=== PATIENT | female | born 1955 | race Caucasian/White ===

== ENCOUNTER 2017-02-04 08:16 | Outpatient (CLI) | payer MEDICARE, OTHER ==
--- NOTE | 2017-02-04 10:17 | ULT ---
GALLBLADDER ULTRASOUND: INDICATION: Right upper quadrant pain. FINDINGS: There is nonvisualization of the gallbladder. The common duct measures 4 mm, which is within normal limits of size. There is heterogeneity of the hepatic echotexture which may be on the basis of hep atic steatosis and/or hepatocellular disease. This does reduce acoustic penetration and limits asse ssment of the liver. No ascites visualized. IMPRESSION: 1. Nonvisualization of the gallbladder. Correlate clinically. 2. Increased echogenicity with decreased acoustic penetration of the liver, as above. Correlation with liver function enzymes may prove useful. 3. Incidental note of cysts of the right kidney, difficult to further characterize due to patient b cori habitus and decreased acoustic penetration of the retroperitoneum. POS: [facility]
== END 2017-02-04 08:17 | disposition home or self-care (01) ==
LOC: MADULT 08:16
PROVIDERS: ATTEND Family Medicine
DX: R10.10 Upper abdominal pain, unspecified (principal); N28.1 Cyst of kidney, acquired
CPT/HCPCS: 76705

== ENCOUNTER 2018-01-08 12:40 | Emergency (ER) | payer MEDICARE, MEDICAID ==
--- NOTE | 2018-01-08 13:31 | RAD ---
CHEST 1 VIEW: Date: 01/08/18 HISTORY: Altered mental status. COMPARISON: 02/22/15. FINDINGS: Cardiac silhouette is magnified by projection. Pulmonary vasculature is upper limits of normal. Media stinum is midline. No lobar consolidation or evidence of pneumothorax. 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 IMPRESSION: No active cardiopulmonary abnormalities are demonstrated. POS: [facility]
[2018-01-08 13:50] LABS: ALT (SGPT) 12 U/L (8-55); AST (SGOT) 18 U/L (5-34); Albumin 3.5 g/dL (3.5-5.0); Alkaline Phosphatase 82 U/L (40-150); Anion Gap 18 mmol/L (10-20); BUN (Urea Nitrogen) 38 mg/dL (9.8-20.1); Bilirubin, Total 0.4 mg/dL (0.2-1.2); Calc. Creatinine Clearance 0 mL/min (70-130); Calcium 9.6 mg/dL (7.8-10.44); Carbon Dioxide 17 mmol/L (22-29); Chloride 107 mmol/L (98-107); Estimated GFR-MDRD 17; Globulin 3.2 g/dL (2.4-3.5); Glucose 273 mg/dL (70-105); Lipase 7 U/L (8-78); Potassium 4.7 mmol/L (3.5-5.1); Protein, Total 6.7 g/dL (6.0-8.3); Sodium 137 mmol/L (136-145)
[2018-01-08] MEDS ORDERED: cefTRIAXone\\ROCEPHIN 1 GM VIAL ONE (13:51)
[2018-01-08 13:55] LABS: Band 17 % (5-11); Hemoglobin 12.7 g/dL (12.0-16.0); Lymphocytes 9 % (21-51); MDiff Complete? YES; Mean Corpuscular HGB CONC 34.6 g/dL (32.0-36.0); Mean Corpuscular Hemoglobin 31.2 pg (27.0-31.0); Mean Corpuscular Volume 90.2 fL (78.0-98.0); Monocytes 4 % (0-10); Neutrophil 70 % (42-75); PLT Morphology Comment Appears Adequate; Platelet Count 153 thou/uL (130-400); RBC Distribution Width 11.6 % (11.5-14.5); Red Blood Cell (RBC) Count 4.05 mill/uL (4.20-5.40); White Blood Cell (WBC) Count 18.4 thou/uL (4.8-10.8)
[2018-01-08 14:01] LABS: Bilirubin Negative (Negative); Blood, Urine Large (Negative); Clarity Cloudy (Clear); Glucose, Urine (Dipstick) Negative (Negative); Leukocyte Moderate (Negative); Nitrite Negative (Negative); Protein, Urine (Dipstick) > or equal to 300 mg/dL (Neg-Trace); Specific Gravity, Urine 1.025 (1.005-1.030); Urobilinogen 0.2 mg/dL (0.2-1.0)
[2018-01-08 14:03] LABS: Bacteria/HPF 4+ HPF (None Seen); RBC/HPF 21-50 HPF (0-3); Squamous Epithelial 0-3 HPF (0-3)
--- NOTE | 2018-01-08 14:15 | CT ---
BRAIN CT WITHOUT IV CONTRAST: HISTORY: A 62-year-old female with a history of altered mental status. 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 There is no focal mass or midline shift. The sin uses and mastoids are clear of acute process. IMPRESSION: 1. 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 2. No mass or midline shift. 3. No acute hemorrhage. POS: [facility]
[2018-01-08] MEDS ORDERED: Enoxaparin Sodium 30 MG/0.3 ML SYRINGE ONE (14:27)
[2018-01-08] MEDS ORDERED: Enoxaparin Sodium 40 MG/0.4 ML SYRINGE ONE (14:27)
== END 2018-01-08 14:45 | disposition short-term general hospital (02) ==
LOC: MADERS 12:40
DX: N39.0 Urinary tract infection, site not specified (principal); R41.82 Altered mental status, unspecified; N17.9 Acute kidney failure, unspecified; R79.89 Other specified abnormal findings of blood chemistry; E78.5 Hyperlipidemia, unspecified; I10 Essential (primary) hypertension; E11.9 Type 2 diabetes mellitus without complications; E05.90 Thyrotoxicosis, unspecified without thyrotoxic crisis or storm; N18.3 Chronic kidney disease, stage 3 (moderate); D64.9 Anemia, unspecified; F41.9 Anxiety disorder, unspecified; F32.9 Major depressive disorder, single episode, unspecified; F17.210 Nicotine dependence, cigarettes, uncomplicated; Z79.899 Other long term (current) drug therapy; Z79.82 Long term (current) use of aspirin; Z79.4 Long term (current) use of insulin
CPT/HCPCS: 36416; 70450; 71045; 80053; 81003; 81015; 83605; 83690; 84484; 85025; 87077; 87086; 87186; 93005; 96361; 96372; 96374; 36415-59; A4353; J0696; J1650